=== PATIENT | male | born 2000 | race Caucasian/White ===

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

== ENCOUNTER 2021-04-29 17:24 | Emergency (ER) | payer OTHER ==
[2021-04-29 17:38] VITALS: BP 126/88
[2021-04-29] MEDS ORDERED: LIDOCAINE-EPINEPH-TETRACAINE 3 ML SYRINGE TOP STA (17:52)
[2021-04-29] MEDS ORDERED: CEPHALEXIN 250 MG Prepack 8 CAP BOTTLE PO STA (17:52)
[2021-04-29] MEDS ORDERED: TETANUS/DIPHTHERIA/PERTUSSIS 0.5 ML SYRINGE IM ONE (17:52)
--- NOTE | 2021-04-29 17:53 | ED Physician Documentation ---
PD HPI Fall - Stated complaint Stated Complaint: HEAD INJ - History obtained from History obtained from: Patient - Additional information Additional information: Healthy 21-year-old gentleman who does not know when his last tetanus shot was. He had a few adult beverages last night around 1 AM and then jumped in a mccall, it was too shallow and he ended up scraping his head and face on the ground. Your wounds were irrigated at home but now he presents wondering what other wound care he might need. No headache or symptoms concerning for head injury at this point. Review of Systems Constitutional: denies: Fever, Chills Nose: denies: Rhinorrhea / runny nose, Congestion, Epistaxis Neurologic: reports: Head injury. denies: Headache, LOC PD PAST MEDICAL HISTORY - Past Surgical History Past Surgical History: No - Present Medications Home Medications: Ambulatory Orders Medication Instructions Recorded Confirmed Amox/Clav 875/125 [Augmentin] 1 each PO Q12H #20 tablet 07/21/20 Bacitracin Zinc Oint 1 applic TOP BID #1 gm 04/29/21 cephALEXin [Keflex] 500 mg PO Q6H #28 cap 04/29/21 - Allergies Allergies/Adverse Reactions: Allergies Allergy/AdvReac Type Severity Reaction Status Date / Time No Known Drug Allergies Allergy Verified 04/29/21 17:38 - Social History Does the pt smoke?: No Smoking Status: Never smoker Does the pt drink ETOH?: No Does the pt have substance abuse?: No - Immunizations Immunizations are current?: Yes - POLST Patient has POLST: No PD ED PE NORMAL - Vitals Vital signs reviewed: Yes - General General: Alert and oriented X 3, No acute distress - HEENT HEENT: Other (He has a deep abrasion that looks like it might have early infection to the anterior left side of the scalp. Then he has some scrapes on the left side of the philtrum and a laceration measuring about 1 cm inferior to the left lower lip.) - Neck Neck: Supple, no meningeal sign, No bony TTP - Neuro Neuro: Alert and oriented X 3, bid analyst 2-12 intact, No motor deficit, No sensory deficit, Normal speech Results - Vitals Vitals: Vital Signs - 24 hr 04/29/21 17:30 Temperature 36.9 C Heart Rate 70 Respiratory 16 Rate Blood Pressure 126/88 H O2 Saturation 100 Oxygen O2 Source Room air Procedures - Laceration (location) chin Length in cm: 1 Wound type: Linear, Into subcut fat Anesthesia: LET Wound preparation: Irrigated copiously NS Skin layer closure: Dermabond Other: Tetanus booster given forehead Length in cm: 2 Wound type: Into muscle, Contaminated, Other (It had the appearance of potentially very early infectious process so a culture was done and it was closed very loosely with Steri-Strips, but not tightly.) PD MEDICAL DECISION MAKING - ED course ED course: The wound on forehead actually already looks to be mildly infected. As such it was closed very loosely with Steri-Strips only and a culture was obtained and he was started on Keflex. Tetanus was updated. The other wounds were addressed as above. Departure - Departure Disposition: 01 Home, Self Care Clinical Impression: Forehead laceration Qualifiers: Encounter type: initial encounter Qualified Code(s): S01.81XA - Laceration without foreign body of other part of head, initial encounter Facial abrasion Qualifiers: Encounter type: initial encounter Qualified Code(s): S00.81XA - Abrasion of other part of head, initial encounter Chin laceration Qualifiers: Encounter type: initial encounter Qualified Code(s): S01.81XA - Laceration without foreign body of other part of head, initial encounter Condition: Good Record reviewed to determine appropriate education?: Yes Instructions: ED Laceration Facial Skin Glue Prescriptions: Bacitracin Zinc Oint 1 applic TOP BID #1 gm cephALEXin [Keflex] 500 mg PO Q6H #28 cap Comments: For the forehead laceration, you can simply wash it with soap and water, otherwise keep it dry. For the deep abrasion under your nose, keep it moist with the antibiotic ointment. Soap and water is fine for that as well. For the laceration below your lip with the glue on it, soap and water is fine but otherwise just keep it clean and dry. We are performing a wound culture, the results should be done in 48-72 hours. If antibiotic change is necessary we will call you. Return if worse in the meantime, especially if you develop increased pain, fevers, cannot keep down the medication. Otherwise follow-up with your physician in approximately 2-3 days. Discharge Date/Time: 04/29/21 18:39
[2021-04-29] MEDS ORDERED: BACITRACIN ZINC OINT 1 PACKET TOP STA (18:21)
== END 2021-04-29 18:39 | disposition home or self-care (01) ==
LOC: ED 17:24
DX: S00.01XA Abrasion of scalp, initial encounter (principal); S00.511A Abrasion of lip, initial encounter; S01.81XA Laceration without foreign body of other part of head, initial encounter; W16.622A Jumping or diving into natural body of water striking bottom causing other injury, initial encounter; Y93.89 Activity, other specified; Y92.828 Other wilderness area as the place of occurrence of the external cause
CPT/HCPCS: 12011; 87070; 87205; 90471; 90715; 99283; A9270